=== PATIENT | male | born 1990 | race American Indian/Alaskan Native ===

== ENCOUNTER 2016-08-28 11:26 | Emergency (ER) | payer BC ==
[2016-08-28 11:40] VITALS: BP 158/106
[2016-08-28 12:25] LABS: Basophils % (Auto) 0.2 % (0.0-1.8); Eosinophils % (Auto) 0.7 % (0.0-4.3); Hematocrit 42.6 % (35.5-45.6); Mean Corpuscular HGB Conc 33 % (32-34); Mean Corpuscular Hemoglobin 30 pg (28-32); Mean Corpuscular Volume 90 fl (84-94); Platelet Count 207 K/mm3 (140-440); Red Blood Count 4.75 M/mm3 (3.65-5.03); Red Cell Distribution Width 12.7 % (13.2-15.2); White Blood Count 14.4 K/mm3 (4.5-11.0)
[2016-08-28 12:32] LABS: Alanine Aminotransferase 14 units/L (7-56); Albumin 4.4 g/dL (3.9-5); Albumin/Globulin Ratio 1.4 %; Alkaline Phosphatase 58 units/L (35-129); Anion Gap 18 mmol/L; Bilirubin,Total < 0.2 mg/dL (0.1-1.2); Blood Urea Nitrogen 12 mg/dL (9-20); Calcium 9.7 mg/dL (8.4-10.2); Carbon Dioxide 25 mmol/L (22-30); Chloride 104.1 mmol/L (98-107); Glucose 114 mg/dL (75-100); Lipase 34 units/L (13-60); Potassium 4.7 mmol/L (3.6-5.0); Sodium 142 mmol/L (137-145); Total Protein 7.6 g/dL (6.3-8.2)
--- NOTE | 2016-08-29 15:38 | ED Elopement Review ---
ED Pt Elopement review - Results review Lab results: Laboratory Tests 08/28/16 08/28/16 11:54 11:54 WBC 14.4 H RBC 4.75 Hgb 14.0 Hct 42.6 MCV 90 MCH 30 MCHC 33 RDW 12.7 L Plt Count 207 Lymph % (Auto) 11.8 L [place] % (Auto) 3.9 Eos % (Auto) 0.7 Baso % (Auto) 0.2 Lymph # 1.7 [place] # 0.6 Eos # 0.1 Baso # 0.0 Seg Neutrophils % 83.4 H Seg Neutrophils # 12.0 H Carbon Dioxide 25 BUN 12 Creatinine 1.1 Estimated GFR > 60 BUN/Creatinine Ratio 10.90 Glucose 114 H Calcium 9.7 Total Bilirubin < 0.2 AST 18 ALT 14 Alkaline Phosphatase 58 Total Protein 7.6 Albumin 4.4 Albumin/Globulin Ratio 1.4 Lipase 34 - Call Back decision Pt Call Back Decision: No action required
== END 2016-08-28 22:00 | disposition left against medical advice (07) ==
LOC: ED 11:26
DX: R10.9 Unspecified abdominal pain (principal); Z53.21 Procedure and treatment not carried out due to patient leaving prior to being seen by health care provider
CPT/HCPCS: 36415; 80053; 83690; 85025

== ENCOUNTER 2018-06-14 03:45 | Emergency (ER) | payer BC ==
[2018-06-14] MEDS ORDERED: NACL 0.9% 1000 ML 1,000 ML IV ONE ×2 (04:42→07:06)
[2018-06-14] MEDS ORDERED: ZOFRAN IV ONE (04:42)
[2018-06-14] MEDS ORDERED: TORADOL IV ONE (04:42)
--- NOTE | 2018-06-14 04:55 | Emergency Department Report ---
<SIMON BOYER - Last Filed: 06/14/18 07:04> ED Abdominal Pain HPI - General Chief Complaint: Abdominal Pain Stated Complaint: LEFT SIDE ABDOMINAL PAIN Time Seen by Provider: 06/14/18 04:40 Source: patient Mode of arrival: Ambulatory Limitations: No Limitations - History of Present Illness Initial Comments: pt is a 28 y/o aam who presents for LLQ Abd pain x 2 days pt states frequent constipation to po laxative yesterday with no result pt states n/v x 2 episode today now with abd cramping rated as 6/10 symptoms relieved by nothing symptom exacerbated by movement and po intake. MD Complaint: abdominal pain Onset/Timin Location: LLQ Radiation: LLQ Migration to: no migration Severity: moderate Severity scale (0 -10): 6 Quality: cramping, aching Consistency: constant Improves With: nothing Worsens With: eating Associated Symptoms: nausea, vomiting. denies: diarrhea, fever, chills, constipation, dysuria, hematemesis, hematochezia, melena, hematuria, anorexia, syncope - Related Data Previous Rx's Medication Instructions Recorded Last Taken Type Ciprofloxacin HCl [Ciprofloxacin 500 mg PO Q12HR #20 tab 02/23/15 Unknown Rx TAB] Diclofenac Dr [Voltaren Dr] 75 mg PO Q12H #20 tablet 02/23/15 Unknown Rx HYDROcodone/APAP 10-325 [[place] 1 each PO Q6HR PRN #16 tablet 02/23/15 Unknown Rx 10/325] Acetaminophen/Codeine [Tylenol 1 tab PO Q6H PRN #12 tab 06/14/18 Unknown Rx /Codeine # 3 tab] Ibuprofen [Motrin] 600 mg PO Q8H PRN #20 tablet 06/14/18 Unknown Rx Sulfamethoxazole/Trimethoprim 1 each PO BID #14 tablet 06/14/18 Unknown Rx [Bactrim DS TAB] Tamsulosin [Flomax] 0.4 mg PO QDAY #5 cap 06/14/18 Unknown Rx Allergies Allergy/AdvReac Type Severity Reaction Status Date / Time No Known Allergies Allergy Unverified 02/22/15 21:44 ED Review of Systems Constitutional: denies: chills, fever Eyes: denies: eye pain, eye discharge, vision change ENT: denies: ear pain, throat pain Respiratory: denies: cough, shortness of breath, wheezing Cardiovascular: denies: chest pain, palpitations Endocrine: no symptoms reported Gastrointestinal: abdominal pain, nausea, vomiting, constipation. denies: diarrhea, hematemesis, melena, hematochezia Genitourinary: denies: urgency, dysuria Musculoskeletal: denies: back pain, joint swelling, arthralgia Skin: denies: rash, lesions Neurological: denies: headache, weakness, paresthesias Psychiatric: denies: anxiety, depression Hematological/Lymphatic: denies: easy bleeding, easy bruising ED Past Medical Hx - Past Medical History Previous Medical History?: No - Surgical History Past Surgical History?: No - Social History Smoking Status: Never Smoker Substance Use Type: None - Medications Home Medications: Home Medications Medication Instructions Recorded Confirmed Last Taken Type Ciprofloxacin HCl [Ciprofloxacin 500 mg PO Q12HR #20 tab 02/23/15 Unknown Rx TAB] Diclofenac Dr [Voltaren Dr] 75 mg PO Q12H #20 tablet 02/23/15 Unknown Rx HYDROcodone/APAP 10-325 [[place] 1 each PO Q6HR PRN #16 tablet 02/23/15 Unknown Rx 10/325] Acetaminophen/Codeine [Tylenol 1 tab PO Q6H PRN #12 tab 06/14/18 Unknown Rx /Codeine # 3 tab] Ibuprofen [Motrin] 600 mg PO Q8H PRN #20 tablet 06/14/18 Unknown Rx Sulfamethoxazole/Trimethoprim 1 each PO BID #14 tablet 06/14/18 Unknown Rx [Bactrim DS TAB] Tamsulosin [Flomax] 0.4 mg PO QDAY #5 cap 06/14/18 Unknown Rx ED Physical Exam - General Limitations: No Limitations General appearance: alert, in no apparent distress - Head Head exam: Present: atraumatic, normocephalic - Eye Eye exam: Present: normal appearance - ENT ENT exam: Present: mucous membranes moist - Neck Neck exam: Present: normal inspection, full ROM. Absent: tenderness, lymphadenopathy, thyromegaly - Respiratory Respiratory exam: Present: normal lung sounds bilaterally. Absent: respiratory distress, wheezes, stridor, chest wall tenderness - Cardiovascular Cardiovascular Exam: Present: regular rate, normal rhythm, normal heart sounds. Absent: systolic murmur, diastolic murmur, rubs, gallop - GI/Abdominal GI/Abdominal exam: Present: soft, tenderness (LLQ), normal bowel sounds. Absent: guarding, rebound, rigid, bruit, pulsatile mass, hernia - Rectal Rectal exam: Present: deferred - Extremities Exam Extremities exam: Present: normal inspection, full ROM, normal capillary refill. Absent: tenderness, pedal edema, joint swelling - Back Exam Back exam: Present: normal inspection, full ROM. Absent: tenderness, CVA tenderness (R), CVA tenderness (L), muscle spasm, paraspinal tenderness, vertebral tenderness - Neurological Exam Neurological exam: Present: alert, oriented X3, CN II-XII intact, normal gait - Psychiatric Psychiatric exam: Present: normal affect, normal mood - Skin Skin exam: Present: warm, dry, intact, normal color. Absent: rash ED Medical Decision Making - Lab Data Result diagrams: 06/14/18 04:45 06/14/18 04:45 Labs 06/14/18 06/14/18 06/14/18 04:45 04:45 Unknown WBC 13.4 H RBC 4.55 Hgb 13.9 Hct 41.6 MCV 91 MCH 31 MCHC 34 RDW 13.1 L Plt Count 191 Lymph % (Auto) 9.4 L [place] % (Auto) 5.3 Eos % (Auto) 0.4 Baso % (Auto) 0.3 Lymph # 1.3 [place] # 0.7 Eos # 0.1 Baso # 0.0 Seg Neutrophils % 84.6 H Seg Neutrophils # 11.4 H Sodium 143 Potassium 3.8 Chloride 102.4 Carbon Dioxide 28 Anion Gap 16 BUN 15 Creatinine 1.3 Estimated GFR > 60 BUN/Creatinine Ratio 12 Glucose 111 H Calcium 9.8 Total Bilirubin 0.40 AST 19 ALT 15 Alkaline Phosphatase 59 Total Protein 7.8 Albumin 4.9 Albumin/Globulin Ratio 1.7 Lipase 30 Urine Color Yellow Urine Turbidity Cloudy Urine pH 6.0 Ur Specific [place] 1.019 Urine Protein 30 mg/dl Urine Glucose (UA) Neg Urine Ketones 20 Urine Blood Lg Urine Nitrite Neg Urine Bilirubin Neg Urine Urobilinogen 2.0 Ur Leukocyte Esterase Sm Urine WBC (Auto) 21.0 H Urine RBC (Auto) > 182.0 U Epithel Cells (Auto) 1.0 Urine Mucus 3+ slightly larger tonight as well - Radiology Data Radiology results: report reviewed, image reviewed FINAL REPORT PROCEDURE: XR ABDOMEN 1V AP TECHNIQUE: Abdominal series, including supine and upright AP views. HISTORY: abd pain COMPARISON: No prior studies are available for comparison. FINDINGS: Bowel gas pattern:Nonobstructive . Masses or calcifications:None . Bony structures:No significant abnormality . Pneumoperitoneum:None . Other:No significant findings . IMPRESSION: No acute abnormality. Transcribed By: [facility] Dictated By: ALLY GRUBER MD Electronically Authenticated By: ALLY GRUBER MD Signed Date/Time: 06/14/18 0514 - Medical Decision Making KUB xray: nonobstructive gas pattern, abdominal pain resolved with nsaids and IVFs pt is now tolerating po intake without n/v there is no fever no chills, CT abd pelvis: Lower ED Disposition Clinical Impression: Calculus of left kidney Disposition: - TO HOME OR SELFCARE Is pt being admited?: No Does the pt Need Aspirin: No Condition: Stable Instructions: Abdominal Pain (ED), Kidney Stones (ED), Tamsulosin (By mouth) Additional Instructions: Follow-up with a primary care doctor in 3-5 days or if symptoms worsen and continue return to emergency room as soon as possible. Do not operate any machinery while taking Tylenol with codeine as this may cause drowsiness. Increase hydration as much as tolerated. Prescriptions: Acetaminophen/Codeine [Tylenol /Codeine # 3 tab] 1 tab PO Q6H PRN #12 tab PRN Reason: Pain , Severe (7-10) Ibuprofen [Motrin] 600 mg PO Q8H PRN #20 tablet PRN Reason: Pain Sulfamethoxazole/Trimethoprim [Bactrim DS TAB] 1 each PO BID #14 tablet Tamsulosin [Flomax] 0.4 mg PO QDAY #5 cap Referrals: [facility] [Outside] - 3-5 Days PRIMARY CAREMD [Referring] - 3-5 Days HEENA PRICE MD [Staff Physician] - 3-5 Days [facility] [Outside] - 3-5 Days Forms: Work/School Release Form(ED) Time of Disposition: 07:00 <NATE MUNOZ - Last Filed: 06/14/18 09:05> ED Review of Systems ROS: Stated complaint: LEFT SIDE ABDOMINAL PAIN Other details as noted in HPI ED Course Vital Signs 06/14/18 04:23 Temperature 98.6 F Pulse Rate 76 Respiratory 20 Rate Blood Pressure 154/100 O2 Sat by Pulse 99 Oximetry ED Medical Decision Making - Lab Data Result diagrams: 06/14/18 04:45 06/14/18 04:45 - Medical Decision Making This is a 28-year-old male male left hydroureteronephrosis with distal urethral obstructive stone. Patient is stable and was examined by me. Patient was originally seen and examined by Simon Boyer NP and was signed out to me for a pending CT results. CT was disucssed with Bonnie Lou and agrees to discharge plan of care with follow-up. Patient was notified of the CT results with all questions noted by the patient. Patient is not febrile with pain and nausea vomiting subsided. The patient is drinking fluids with no complications. Patient will be discharged with Bactrim, Zofran, Motrin and Tylenol with codeine and Flomax. Patient was referred to Follow-up with a primary care doctor in 3-5 days or if symptoms worsen and continue return to emergency room as soon as possible. At time of discharge, the patient does not seem toxic or ill in appearance. No acute signs of distress noted. Patient agrees to discharge treatment plan of care. No further questions noted by the patient. Critical care attestation.: If time is entered above; I have spent that time in minutes in the direct care of this critically ill patient, excluding procedure time. ED Disposition Time of Disposition: 09:05
[2018-06-14 05:12] LABS: Basophils % (Auto) 0.3 % (0.0-1.8); Eosinophils # (Auto) 0.1 K/mm3 (0.0-0.4); Eosinophils % (Auto) 0.4 % (0.0-4.3); Hematocrit 41.6 % (35.5-45.6); Hemoglobin 13.9 gm/dl (11.8-15.2); Lymphocytes # (Auto) 1.3 K/mm3 (1.2-5.4); Lymphocytes % (Auto) 9.4 % (13.4-35.0); Mean Corpuscular HGB Conc 34 % (32-34); Mean Corpuscular Volume 91 fl (84-94); Monocytes # (Auto) 0.7 K/mm3 (0.0-0.8); Monocytes % (Auto) 5.3 % (0.0-7.3); Platelet Count 191 K/mm3 (140-440); Red Blood Count 4.55 M/mm3 (3.65-5.03); Red Cell Distribution Width 13.1 % (13.2-15.2)
--- NOTE | 2018-06-14 05:14 | XRay Report ---
FINAL REPORT PROCEDURE: XR ABDOMEN 1V AP TECHNIQUE: Abdominal series, including supine and upright AP views. HISTORY: abd pain COMPARISON: No prior studies are available for comparison. FINDINGS: Bowel gas pattern:Nonobstructive . Masses or calcifications:None . Bony structures:No significant abnormality . Pneumoperitoneum:None . Other:No significant findings . IMPRESSION: No acute abnormality.
[2018-06-14 05:30] LABS: Alanine Aminotransferase 15 units/L (7-56); Albumin 4.9 g/dL (3.9-5); BUN/Creatinine Ratio 12; Blood Urea Nitrogen 15 mg/dL (9-20); Calcium 9.8 mg/dL (8.4-10.2); Hemolysis Index 9
[2018-06-14 06:46] LABS: Bilirubin,Urine NEG (Negative); Blood,Urine LG (Negative); Color,Urine Yellow (Yellow); Mucus,Urine 3+ /HPF
[2018-06-14 06:51] LABS: RBC,Urine > 182.0 /HPF (0.0-6.0)
[2018-06-14] MEDS ORDERED: ROCEPHIN/NS 1 GM/50 ML 1 GM/50 ML BAG IV ONE (07:08)
--- NOTE | 2018-06-14 08:42 | Cat Scan Report ---
FINAL REPORT EXAM: CT ABDOMEN PELVIS WO CON HISTORY: abd pain TECHNIQUE: CT images obtained through the Abdomen and Pelvis without contrast. Transaxial,coronal an d sagittal reformats are provided. PRIORS: Radiograph of the same date FINDINGS: Imaged intrathoracic contents are unremarkable. Kidneys are normal axis and position. There is mild edematous enlargement of the left kidney with per inephric stranding. There is mild left hydroureteronephrosis due to a [address] one on axial series 2, image 128. Bilateral hyperdense papilla and numerous additional nonobstructive collecting system stones measuring up to 4 millimeters. No right-sided hydroureteronephrosis. No nataly e fluid in the pelvis. A peripheral round low-density lesion is present in the anterior spleen with a few punctate wall calc ifications measuring up to about 2.3 cm in greatest dimension, which is most likely sequela of prior infection, trauma or infarct. The liver, gallbladder, pancreas, spleen, and adrenal glands otherwise demonstrate an unremarkable noncontrast appearance. Hollow enteric organs are normal in course and caliber. Appendix is normal. No intra-abdominal free air/fluid or lymphadenopathy. Aorta is normal in course and caliber. Superficial soft tissues are unremarkable. No acute or aggressive appearing skeletal findings. IMPRESSION: Mild left hydroureteronephrosis due to a 3 millimeter distal ureteral obstructive stone.
[2018-06-14 09:19] VITALS: BP 138/81
== END 2018-06-14 09:18 | disposition home or self-care (01) ==
LOC: ED 03:45
DX: N20.0 Calculus of kidney (principal); R11.2 Nausea with vomiting, unspecified
CPT/HCPCS: 36415; 74018; 74176; 80053; 81001; 83690; 85025; 96361; 96365; 96375; 99284; J0696; J1885; J2405; J7030